=== PATIENT | female | born 1945 | race African-American/Black ===

== ENCOUNTER → 2017-07-03 | Outpatient (CLI) | payer MEDICARE | END | disposition home or self-care (01) | LOC: MAMMO 10:33 | DX: Z12.31 Encounter for screening mammogram for malignant neoplasm of breast (principal); Z85.3 Personal history of malignant neoplasm of breast | CPT/HCPCS: 77067 ==

== ENCOUNTER → 2019-11-01 | Outpatient (CLI) | payer MEDICARE ==
[2015-12-09 09:45] VITALS: BP 156/49
[~2019-11-01] MED LIST: ASPI-612 PO; CHOL10003 PO; DOCU-109 PO; LORA1TAB PO; VITA1CAP PO
--- NOTE | 2019-11-01 14:06 | RAD ---
Left chest ultrasound at site of prior mastectomy for abnormal sensation of something moving when the patient bends over. TECHNIQUE AND FINDINGS: Real-time grayscale imaging of the area of interest was performed. No masses or fluid collections are identified in the left chest overlying the breast implant which appears intact. IMPRESSION: 1. No sonographic abnormality of the area of interest. Electronically signed by: Arpan Boo MD (11/01/2019 2:03 PM) [id number]
== END | disposition home or self-care (01) ==
LOC: US 11:02
PROVIDERS: ATTEND Internal Medicine Hematology & Oncology
DX: D05.12 Intraductal carcinoma in situ of left breast (principal)
CPT/HCPCS: 76604

== ENCOUNTER → 2020-08-13 | Outpatient (CLI) | payer MEDICARE ==
[2015-12-09 09:45] VITALS: BP 156/49
[~2020-08-13] MED LIST changes: -ASPI-612 PO; +ASPI-886 PO
--- NOTE | 2020-08-13 13:29 | RAD ---
PROCEDURE: MG DIGITAL MAMMO SCREENING UNILT+JEANNINE HISTORY: The patient is 75 years old and is seen for Reason: Screening,hx lt breast cancer / Spl. Ins tructions: / History: . Prior left mastectomy. COMPARISON: July 13, 2018 and July 22, 2019 and June 21, 2016 TECHNIQUE: CC and MLO views of right breast were obtained. Images were processed by the [employer] computer-aided detection system. DENSITY: There are scattered fibroglandular densities. FINDINGS: No developing mass, suspicious calcifications or architectural distortion. Right medial breast focal asymmetry, unchanged compared to thousand 17. Benign-appearing calcifications, unchanged . IMPRESSION: Benign findings. No evidence of malignancy. Recommend annual screening mammograms per [employer] guidelines. She will be due in one year. BI-RADS category 2 Benign Patient entered into a reminder system for annual screening mammogram. Electronically signed by: Rick Gallagher DO (08/13/2020 1:27 PM) [email or web address]
== END ==
LOC: MAMMO 10:26
PROVIDERS: ATTEND Internal Medicine Hematology & Oncology
DX: Z12.31 Encounter for screening mammogram for malignant neoplasm of breast (principal); Z85.3 Personal history of malignant neoplasm of breast; Z90.12 Acquired absence of left breast and nipple
CPT/HCPCS: 77061; 77067

== ENCOUNTER → 2021-08-16 | Outpatient (CLI) | payer MEDICARE ==
[2015-12-09 09:45] VITALS: BP 156/49
--- NOTE | 2021-08-16 15:02 | RAD ---
Bilateral digital screening 2-D and 3-D (digital breast tomosynthesis) mammogram: Reason for examination: Routine screening. The patient has a personal history of bilateral breast car cinoma with left mastectomy in 2009. Right lumpectomy and radiation therapy 1995. Comparison: Mammograms from 08/13/2020, 07/22/2019, 07/13/2018. Interpretation was made with the benefit of CAD. FINDINGS: Breast density: Category B. There are scattered areas of fibroglandular density. No suspicious breast mass, malignant appearing calcifications, or unexplained architectural distortio n is seen. There are stable post therapeutic changes with benign calcifications. IMPRESSION: No evidence of malignancy. Assessment: BI-RADS 2. Benign findings. Recommendation: Routine screening mammograms. The patient will receive a letter with the results in the mail. Patient information will be entered i nto the mammography reminder system with a target recall date for the next mammogram. A reminder lavonne er will be generated. Electronically signed by: Waleska Orosco MD (08/16/2021 2:59 PM) [id number]
== END ==
LOC: MAMMO 12:09
PROVIDERS: ATTEND Internal Medicine Hematology & Oncology
DX: Z12.31 Encounter for screening mammogram for malignant neoplasm of breast (principal)
CPT/HCPCS: 77063; 77067